=== PATIENT | male | born 1980 ===

== ENCOUNTER 2017-05-15 19:08 | Emergency (ER) | payer SELFPAY ==
[2017-05-15 19:13] VITALS: BP 138/56; PULSE 91; RESP 16; TEMP 98; O2SAT 98
--- NOTE | 2017-05-15 19:44 | ED PDOC ---
HPI: Psych/Substance Abuse Time Seen by Provider: 05/15/17 19:36 Chief Complaint (Nursing): Alcohol Ingestion Chief Complaint (Provider): Alcohol abuse, facial injury History Per: Patient History/Exam Limitations: no limitations Onset/Duration Of Symptoms: Days Current Symptoms Are (Timing): Still Present Additional Complaint(s): Pt reports drinking too much after he found out significant other was cheating on him. Pt states he is unbalanced and fell hitting his face. Past Medical History Reviewed: Historical Data, Nursing Documentation, Vital Signs Vital Signs: Last Vital Signs Temp 98.0 F 05/15/17 19:11 Pulse 91 H 05/15/17 19:11 Resp 16 05/15/17 19:11 BP 138/56 L 05/15/17 19:11 Pulse Ox 98 05/15/17 19:11 - Medical History PMH: No Chronic Diseases - Surgical History Surgical History: No Surg Hx - Family History Family History: States: No Known Family Hx - Living Arrangements Living Arrangements: With Family - Social History Current smoker - smoking cessation education provided: No - Allergies Allergies/Adverse Reactions: Allergies Allergy/AdvReac Type Severity Reaction Status Date / Time No Known Allergies Allergy Verified 05/15/17 19:11 Review of Systems ROS Statement: Except As Marked, All Systems Reviewed And Found Negative Constitutional: Negative for: Fever, Chills Gastrointestinal: Negative for: Nausea Genitourinary Male: Negative for: Dysuria, Frequency Skin: Positive for: Other (Abrasions ) Physical Exam - Reviewed Nursing Documentation Reviewed: Yes Vital Signs Reviewed: Yes - Physical Exam Appears: Positive for: Well, Non-toxic, No Acute Distress Head Exam: Positive for: NORMOCEPHALIC. Negative for: ATRAUMATIC ((+) fronatal hematoma ), NORMAL INSPECTION Skin: Positive for: Warm. Negative for: Normal Color (Several superficial abrasions on the nose) Eye Exam: Positive for: EOMI, Normal appearance, PERRL ENT: Positive for: Normal ENT Inspection Neck: Positive for: Normal, Painless ROM Cardiovascular/Chest: Positive for: Regular Rate, Rhythm Respiratory: Positive for: Normal Breath Sounds. Negative for: Accessory Muscle Use Back: Positive for: Normal Inspection Extremity: Positive for: Normal ROM Neurologic/Psych: Positive for: Alert, Oriented - ECG O2 Sat by Pulse Oximetry: 98 Medical Decision Making Medical Decision Making: Endorsed pending head CT and facial CT. Disposition - Clinical Impression Clinical Impression: Alcohol abuse - Patient ED Disposition Is Patient to be Admitted: Transfer of Care - Disposition Disposition: Transfer of Care Disposition Time: 19:49 Condition: STABLE
[2017-05-15 20:17] LABS: HEMOGLOBIN 15.1 g/dL (12.0-18.0); MEAN CELL VOLUME 92.2 fl (80.0-94.0); MEAN CORPUSCULAR HGB CONC 32.5 g/dL (33.0-37.0); RBC 5.03 Mil/uL (4.40-5.90); RED CELL DISTRIBUTION WIDTH 13.3 % (11.5-14.5); WHITE BLOOD COUNT 5.2 K/uL (4.8-10.8)
[2017-05-15 20:19] LABS: ABG ALLEN TEST YES; ARTERIAL BLOOD GAS HCO3 24.4 mmol/L (21-28); ARTERIAL BLOOD GAS HEMOGLOBIN 15.9 g/dL (11.7-17.4); ARTERIAL BLOOD GAS O2 CAPACITY 21.2 mL/dL (16-24); ARTERIAL BLOOD GAS O2 SAT 99.2 % (95-98); ARTERIAL BLOOD GAS PCO2 39 mm/Hg (35-45); ARTERIAL BLOOD GAS PO2 91 mm/Hg (80-100); ARTERIAL BLOOD GAS TCO2 25.4 mmol/L (22-28)
[2017-05-15] MEDS ORDERED: Insulin Regular 100 units/ml IV STA (20:22)
[2017-05-15] MEDS ORDERED: Sodium Chloride 0.9% 1,000 ML IV STA ×2 (20:22→23:09)
--- NOTE | 2017-05-15 20:23 | ED PDOC ---
- Laboratory Results Result Diagrams: 05/15/17 20:10 05/15/17 20:10 Urine dip results: Positive for: Ketones (trace). Negative for: Leukocyte Esterase, Blood, Nitrate, Glucose, Bilirubin, Protein - ECG O2 Sat by Pulse Oximetry: 98 Pulse Ox Interpretation: Normal Medical Decision Making Medical Decision Making: Case was signed out to designer writer from [facility] pending labs and re-evaluation. CT head: no acute finding CT facial bones: Nasal fractures, age indeterminate. 11:00 pm: repeat fingerstick: 207 after insulin and fluid bolus given 12:10 - patient is awake and alert with steady gait. He states he would like to go home and he will take a cab. Patient is aware of diagnostic testing results. He was given rx metformin and was advised to take meds as directed and follow up with clinic. Disposition - Clinical Impression Clinical Impression: Alcohol abuse, Hyperglycemia - POA Present On Arrival: None - Disposition Referrals: [facility] [Outside] Disposition: Routine/Home Disposition Time: 00:06 Condition: STABLE Additional Instructions: Take rx meds as directed. Follow up with clinic [facility]. Prescriptions: MetFORMIN [glucoPHAGE] 500 mg PO BID #60 tab Instructions: Alcohol Intoxication (ED), Diabetic Hyperglycemia (ED) Forms: [employer] ([place])
[2017-05-15 20:46] LABS: ALB/GLOB RATIO 1.3 (1.0-2.1); ALBUMIN 4.7 g/dL (3.5-5.0); ALT/SGPT 106 U/L (21-72); AST/SGOT 68 U/L (17-59); BLOOD UREA NITROGEN 6 mg/dl (9-20); CALCIUM 8.6 mg/dL (8.4-10.2); GFR AFRICAN-AMERICAN > 60; GFR NON-AFRICAN AMERICAN > 60
--- NOTE | 2017-05-15 21:22 | CT ---
EXAM: CT Head Without Intravenous Contrast CLINICAL HISTORY: 36 years old, male; Injury or trauma; Fall; Initial encounter; Laceration; Consciousness not specified; Without residual foreign body; Head, generalized; Injury date: Today? ; Injury details: ETOH found lying on the street. B/l facial laceration/ swelling; Additional info: Head injury, ETOH, fall TECHNIQUE: Axial computed tomography images of the head/brain without intravenous contrast. All CT scans at this facility use one or more dose reduction techniques, viz.: automated exposure control; ma/kV adjustment per patient size (including targeted exams where dose is matched to indication; i.e. head); or iterative reconstruction technique. Coronal and sagittal reformatted images were created and reviewed. COMPARISON: No relevant prior studies available. FINDINGS: Brain: Minimal atrophy. No intracranial hemorrhage. No mass. No edema. Ventricles: No hydrocephalus. Bones/joints: No calvarial fracture. Soft tissues: Mild scalp swelling. Few scalp calcifications. Mastoid air cells: No mastoid effusion. IMPRESSION: 1. No intracranial hemorrhage. 2. See facial bone CT report for additional details. 3. Incidental/non-acute findings are described above.
--- NOTE | 2017-05-15 21:27 | CT ---
EXAM: CT Maxillofacial Without Intravenous Contrast CLINICAL HISTORY: 36 years old, male; Injury or trauma; Fall; Initial encounter; Laceration; Forehead and nose and maxilla; Without residual foreign body; Injury date: Today? ; Injury details: ETOH found lying on the street. B/l facial laceration/ swelling; Additional info: Facial injury, ETOH, fall TECHNIQUE: Axial computed tomography images of the face without intravenous contrast. All CT scans at this facility use one or more dose reduction techniques, viz.: automated exposure control; ma/kV adjustment per patient size (including targeted exams where dose is matched to indication; i.e. head); or iterative reconstruction technique. Coronal and sagittal reformatted images were created and reviewed. COMPARISON: No relevant prior studies available. FINDINGS: Bones/joints: Mild degenerative changes of cervical spine. Nondisplaced fracture tip of nasal bones, age indeterminate. Soft tissues: Unremarkable. Orbits: Unremarkable as visualized. Sinuses: Scattered minimal mucosal thickening. No air-fluid levels. IMPRESSION: 1. Nasal fractures, age indeterminate. 2. Incidental/non-acute findings are described above.
== END 2017-05-16 00:18 | disposition home or self-care (01) ==
LOC: H.ER 19:08
DX: S02.2XXA Fracture of nasal bones, initial encounter for closed fracture (principal); F10.10 Alcohol abuse, uncomplicated; E11.9 Type 2 diabetes mellitus without complications; Z79.84 Long term (current) use of oral hypoglycemic drugs; S00.31XA Abrasion of nose, initial encounter; W19.XXXA Unspecified fall, initial encounter
CPT/HCPCS: 70450; 70486; 80053; 82803; 82948; 85027; 90471; 90715; 99282; G0480; J7040